=== PATIENT | female | born 1960 | race Asian ===

== ENCOUNTER 2018-11-10 15:45 | Emergency (ER) | payer OTHER ==
[~2018-11-10] VITALS: Ht 152.4 cm; Wt 59.1 kg
[2018-11-10] MEDS ORDERED: CIDE300T3 PO (16:02)
[2018-11-10 18:26] VITALS: BP 136/84
== END 2018-11-10 18:25 | disposition home or self-care (01) ==
LOC: EMS 15:45
DX: S09.90XA Unspecified injury of head, initial encounter (principal); M54.12 Radiculopathy, cervical region; W07.XXXA Fall from chair, initial encounter; Y93.89 Activity, other specified; Y92.89 Other specified places as the place of occurrence of the external cause; Y99.8 Other external cause status
CPT/HCPCS: 70450; 72125